=== PATIENT | female | born 1960 | race Two or more races ===

== ENCOUNTER 2017-01-29 11:59 | Inpatient (IN) | payer BC ==
[2017-01-29 13:27] VITALS: BMI 24.4
--- NOTE | 2017-01-29 18:01 | HP ---
Admission [facility] Chief Complaint: SEEKING REHAB SERVICES Allergies/Adverse Reactions: Allergies Allergy/AdvReac Type Severity Reaction Status Date / Time No Known Allergies Allergy Verified 01/29/17 16:42 History of Present Illness: 56 Y.O. WOMAN WITH HISTORY OF CRACK COCAINE DEPENDENCE IS SEEKING REHAB SERVICES. THE REPORTS SHE COMPLETED INPATIENT REHAB AT [facility] IN 2013. Exam Limitations: No Limitations - Ebola screening Have you traveled outside of the country in the last 21 days: No Have you had contact with anyone from an Ebola affected area: No Have you been sick,other than usual withdrawal symptoms: No Do you have a fever: No - Review of Systems Constitutional: Loss of Appetite, Changes in sleep EENT: reports: Tearing, Dental Problems Respiratory: reports: Shortness of Breath Cardiac: reports: Chest Tightness GI: reports: Diarrhea, Poor Appetite : reports: No Symptoms Reported Musculoskeletal: reports: Back Pain, Neck Pain Integumentary: reports: No Symptoms Reported Neuro: reports: Tingling Endocrine: reports: No Symptoms Reported Hematology: reports: Anemia Psychiatric: reports: Mood/Affect Appropiate, Orientated x3, Anxious, Depressed Other Systems: Reviewed and Negative Patient History - Patient Medical History Hx Anemia: Yes Hx Asthma: Yes Hx Chronic Obstructive Pulmonary Disease (COPD): No Hx Cancer: No Hx Cardiac Disorders: No Hx Congestive Heart Failure: No Hx Hypertension: No Hx Hypercholesterolemia: Yes Hx Pacemaker: No HX Cerebrovascular Accident: No Hx Seizures: No Hx Dementia: No Hx Diabetes: No Hx Gastrointestinal Disorders: No Hx Liver Disease: No Hx Genitourinary Disorders: No Hx Sexually Transmitted Disorders: No Hx Renal Disease (ESRD): No Hx Human Immunodeficiency Virus (HIV): Yes Hx Hepatitis C: No Hx Depression: Yes Hx Suicide Attempt: Yes (Suicidal ideation but no plan ) Hx Bipolar Disorder: Yes (No meds ) Hx Schizophrenia: Yes (No meds) Other Medical History: Aneurysm-2007 - Patient Surgical History Past Surgical History: Yes Hx Section: Yes Anesthesia Reaction: No - PPD History Previous Implant?: Yes Documented Results: Negative w/o proof Implanted On Prior [facility] Admission?: No PPD to be Administered?: Yes - Reproductive History Patient is a Female of Child Bearing Age (11 -55 yrs old): No - Smoking Cessation Smoking history: Current every day smoker Have you smoked in the past 12 months: Yes Aproximately how many cigarettes per day: 20 Hx Chewing Tobacco Use: No Initiated information on smoking cessation: Yes 'Breaking Loose' booklet given: 01/29/17 - Substance & Tx. History Hx Alcohol Use: No Hx Substance Use: Yes Substance Use Type: Cocaine Hx Substance Use Treatment: Yes (Rehab-2013) - Substances Abused Crack Route: Smoking Frequency: Daily Amount used: $200 Age of first use: 20 Date of Last Use: 01/28/17 Family Disease History - Family Disease History Family Disease History: Diabetes: Mother ( ), CA: Father ( ) Admission Physical Exam [facility] - Vital Signs Vital Signs: Vital Signs - 24 hr 01/29/17 13:25 Temperature 98.8 F Pulse Rate 61 Respiratory 18 Rate Blood Pressure 99/55 - Physical General Appearance: Yes: Anxious HEENTM: Yes: Normocephalic, Normal Voice, Other (MISSING UPPER/LOWER TEETH) Respiratory: Yes: Chest Non-Tender, Lungs Clear, Normal Breath Sounds, No Respiratory Distress, No Accessory Muscle Use Neck: Yes: No masses,lesions,Nodules, Trachea in good position Breast: Yes: Breast Exam Deferred Cardiology: Yes: Regular Rhythm, Regular Rate Abdominal: Yes: Normal Bowel Sounds, Non Tender, Flat, Soft Genitourinary: Yes: Other (NO COMPLAINTS REPORTED) Back: Yes: Within Normal Limits, Normal Inspection Musculoskeletal: Yes: full range of Motion, Gait Steady Extremities: Yes: Normal Capillary Refill, Normal Inspection, Normal Range of Motion, Non-Tender Neurological: Yes: dough catcher II-XII NML intact, Fully Oriented, Alert, Normal Mood/ Affect, Normal Response Integumentary: Yes: Normal Color, Dry, Warm Lymphatic: Yes: Within Normal Limits - Diagnostic (1) Cocaine dependence, uncomplicated Current Visit: Yes Status: Chronic (2) Nicotine dependence Current Visit: Yes Status: Chronic (3) Asthma Current Visit: Yes Status: Chronic Cleared for Admission [facility] - Detox or Rehab [facility] Level of Care: Observation Bed Claeared for Rehab Admission: Yes [facility] Breath Alcohol Content Breath Alcohol Content: 0 Urine Pregancy Test - Result Urine Test Results: Negative- NO Line Present Urine Drug Screen - Results Drug Screen Negative: No Urine Drug Screen Results: THC-Marijuana, PAO-Cocaine
[2017-01-29] MEDS ORDERED: hydrOXYzine PAMOATE 50 MG CAPSULE (FP) PO PRN (18:21)
[2017-01-29] MEDS ORDERED: NICOTINE POLACRILEX 2 MG GUM BC PRN (18:21)
[2017-01-29] MEDS ORDERED: IBUPROFEN 400 MG TABLET (FP) PO PRN (18:21)
[2017-01-29] MEDS ORDERED: MAGNESIUM CITRATE 300 ML BOTTLE PO PRN (18:21)
[2017-01-29] MEDS ORDERED: MAGNESIUM HYDROX 2400MG/30ML ORAL SUSPENSION 30 ML CUP PO PRN (18:21)
[2017-01-29] MEDS ORDERED: MAG HYDROX/AL HYDROX/SIMETH 30 ML UNIT-DOSE CUP PO PRN (18:21)
[2017-01-29] MEDS ORDERED: ACETAMINOPHEN 325 MG TABLET (FP) PO PRN (18:21)
[2017-01-29] MEDS ORDERED: MENTHOL/PHENOL 1 EACH UD MM PRN (18:21)
[2017-01-29] MEDS ORDERED: LOPERAMIDE HCL 2 MG CAPSULE PO PRN (18:21)
[2017-01-29] MEDS ORDERED: P-EPHED 60MG/TRIPROLIDI 2.5MG TABLET PO PRN (18:21)
[2017-01-29] MEDS ORDERED: guaiFENesin/D-METHORPHAN HB 10 ML UNIT-DOSE CUPS PO PRN (18:21)
[2017-01-29] MEDS ORDERED: ALBUTEROL SO4 2.5/IPRATROPIUM 0.5 INH SOL 3 ML VIAL.NEB. NEB PRN (18:22)
[2017-01-29] MEDS ORDERED: ALBUTEROL SO4 6.7 GM HFA INHALER IH PRN (18:22)
[2017-01-29] MEDS: THIAMINE HCL 100 MG TABLET (FP) PO SCH (21:26)
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
[2017-01-30] MEDS: NICOTINE 21 MG/24 HOURS TOPICAL PATCH TD SCH (09:53)
[2017-01-30] MEDS: PRENATAL VITAMINS W/ FOLIC ACID TABLET (FP) PO SCH (09:53)
[2017-01-30 10:32] LABS: URINE APPEARANCE CLEAR; URINE BILIRUBIN NEGATIVE (NEGATIVE); URINE BLOOD 1+ (NEGATIVE); URINE COLOR LTYELLOW; URINE GLUCOSE (UA) NEGATIVE (NEGATIVE); URINE KETONE NEGATIVE (NEGATIVE); URINE NITRITE NEGATIVE (NEGATIVE); URINE PROTEIN NEGATIVE (NEGATIVE); URINE UROBILINOGEN NEGATIVE mg/dL (0.2-1.0)
[2017-01-30 10:38] LABS: URINE LEUK ESTERASE TRACE (NEGATIVE)
[2017-01-30 10:40] LABS: URINE BACTERIA FEW /hpf (NONE SEEN); URINE MUCUS RARE; URINE RBC 1 /hpf (0-3); URINE WBC 11 /hpf (3-5)
--- NOTE | 2017-01-30 11:13 | EKG ---
Test Reason : Blood Pressure : / mmHG Vent. Rate : 049 BPM Atrial Rate : 049 BPM P-R Int : 124 ms QRS Dur : 090 ms QT Int : 462 ms P-R-T Axes : 065 072 066 degrees QTc Int : 417 ms SINUS BRADYCARDIA OTHERWISE NORMAL ECG NO PREVIOUS ECGS AVAILABLE Confirmed by RYAN DÍAZ, ALE ([id number]) on 01/30/2017 11:12:29 AM Referred By: Confirmed By:ALE DAVIS MD
[2017-01-30 15:21] LABS: MCH 26.8 pg (25.7-33.7); MCHC 33.2 g/dl (32.0-36.0); MEAN CELL VOLUME 80.7 fl (80-96); MEAN PLT VOLUME 10.6 fl (7.5-11.1); PLATELET COUNT 184 K/MM3 (134-434); RDW 14.6 % (11.6-15.6); WHITE BLOOD COUNT 3.6 K/mm3 (4.0-10.0)
[2017-01-30 15:26] LABS: ALBUMIN 2.9 g/dl (3.4-5.0); ALK PHOS 115 U/L (45-117); ANION GAP 7 (8-16); BILIRUBIN,TOTAL 0.2 mg/dL (0.2-1.0); CO2 27 mmol/L (21-32); CREATININE 0.7 mg/dL (0.55-1.02); GLUCOSE,RANDOM 84 mg/dL (74-106); SGOT/AST 17 U/L (15-37); SGPT/ALT 14 U/L (12-78); TOT PROT 7.4 g/dl (6.4-8.2)
[2017-01-30 16:38] LABS: HIV 1 & 2 AB NEGATIVE; HIV 1 AGp24 NEGATIVE
[2017-01-30] MEDS: diphenhydrAMINE HCL 50 MG CAPSULE PO PRN (21:07)
[2017-01-30] MEDS: THIAMINE HCL 100 MG TABLET (FP) PO SCH (21:07)
[2017-01-31] MEDS: PRENATAL VITAMINS W/ FOLIC ACID TABLET (FP) PO SCH (09:52)
[2017-01-31] MEDS: NICOTINE 21 MG/24 HOURS TOPICAL PATCH TD SCH (09:52)
[2017-01-31] MEDS: THIAMINE HCL 100 MG TABLET (FP) PO SCH (21:25)
--- NOTE | 2017-02-01 09:28 | PN ---
Psychiatric Progress Note Vital Signs: Vital Signs Period Temp Pulse Resp BP Sys/Mart Pulse Ox Last 24 Hr 98.3 F 56 16-18 109/65 Date of Session: 02/01/17 Chief Complaint:: Insomnia HPI: Patient addressing Cocaine Dependence comorbid with Nicotine Dependence and Schizoaffective Disorder ROS: Asthma, Anemia and Hyperlipidemia Current Medications: Active Medications Generic Name Dose Route Start Last Admin Trade Name Freq PRN Reason Stop Dose Admin Acetaminophen 650 mg 01/29/17 18:21 Tylenol - PO Q4H PRN PAIN Al Hydroxide/Mg Hydroxide 30 ml 01/29/17 18:21 Mylanta Oral Suspension - PO Q6H PRN DYSPEPSIA Albuterol Sulfate 2 puff 01/29/17 18:22 Ventolin Hfa Inhaler - IH Q4H PRN SHORT OF BREATH/WHEEZING Albuterol/Ipratropium 1 amp 01/29/17 18:22 Duoneb - NEB Q6H PRN SHORTNESS OF BREATH Diphenhydramine HCl 50 mg 01/29/17 18:21 01/30/17 21:07 Benadryl - PO 50 mg HSMR1 PRN Administration INSOMNIA Eucalyptus/Menthol/Phenol/Sorbitol 1 each 01/29/17 18:21 Cepastat Lozenge - MM Q4H PRN SORE THROAT Guaifenesin 10 ml 01/29/17 18:21 Robitussin Dm - PO Q6H PRN COUGH Hydroxyzine Pamoate 50 mg 01/29/17 18:21 Vistaril - PO Q4H PRN AGITATION Ibuprofen 400 mg 01/29/17 18:21 Motrin - PO Q6H PRN SEVERE PAIN Loperamide HCl 4 mg 01/29/17 18:21 Imodium - PO Q6H PRN DIARRHEA Magnesium Citrate 300 ml 01/29/17 18:21 Citroma - PO Q48H PRN CONSTIPATION Magnesium Hydroxide 30 ml 01/29/17 18:21 Milk Of Magnesia - PO DAILY PRN CONSTIPATION Nicotine 21 mg 01/30/17 10:00 01/31/17 09:52 Nicoderm Patch - TD Not Given DAILY TRISTON Nicotine Polacrilex 2 mg 01/29/17 18:21 Nicorette Gum - BC Q2H PRN NICOTINE REPLACEMENT RX Multivit/Folic Acid/Iron 1 tab 01/30/17 10:00 01/31/17 09:52 Vitamins ([facility]) - PO 1 tab DAILY TRISTON Administration Pseudoephedrine/Triprolidine 1 combo 01/29/17 18:21 Actifed - PO TID PRN NASAL CONGESTION Thiamine HCl 100 mg 01/29/17 22:00 01/31/17 21:25 Vitamin B1 - PO Not Given HS TRISTON Medication(s) Change(s): Start Seroquel 100 mg po HS Current Side Effect: No Lab tests ordered: Yes Lab tests reviewed: Yes Provider note:: Patient reports experiencing difficulty to sleep. Told documentation writer that she has been sleeping poorly despite taking Benadryl. Educated about hypnotic as well as antipsychotic effects of Seroquel and she has agreed try it Total face to face time:: 25 Mental Status Exam - Mental Status Exam Alert and Oriented to: Time, Place, Person Cognitive Function: Fair Patient Appearance: Well Groomed Mood: Hopeful, Euthymic Affect: Appropriate Patient Behavior: Cooperative Speech Pattern: Clear Voice Loudness: Normal Thought Process: Intact, Goal Oriented Thought Disorder: Not Present Hallucinations: Denies Suicidal Ideation: Denies Homicidal Ideation: Denies Insight/Judgement: Fair Sleep: Poorly Appetite: Good Muscle strength/Tone: Normal Gait/Station: Normal Psychiatric Treatment Plan - Problem List (1) Cocaine dependence, uncomplicated Current Visit: Yes (2) Nicotine dependence Current Visit: Yes (3) Schizoaffective disorder Current Visit: Yes (4) Asthma Current Visit: Yes (5) Anemia Current Visit: Yes (6) Hyperlipidemia Current Visit: Yes Initial treatment plan: 1) Start Seroquel 100 mg po HS. 2) Monitor progress
[2017-02-01] MEDS: PRENATAL VITAMINS W/ FOLIC ACID TABLET (FP) PO SCH (10:10)
[2017-02-01] MEDS: NICOTINE 21 MG/24 HOURS TOPICAL PATCH TD SCH (10:11)
[2017-02-01] MEDS ORDERED: LIDOCAINE 5% TOPICAL PATCH TP ONE (15:30)
[2017-02-01] MEDS: QUEtiapine FUMARATE 100 MG TABLET (FP) PO SCH (21:28)
[2017-02-01] MEDS: THIAMINE HCL 100 MG TABLET (FP) PO SCH (21:28)
[2017-02-01] MEDS: diphenhydrAMINE HCL 50 MG CAPSULE PO PRN (21:29)
[2017-02-01] MEDS ORDERED: LIDOCAINE PATCH REMOVAL MC ONE (22:00)
[2017-02-01] MEDS: LIDOCAINE PATCH REMOVAL MC SCH (22:03)
[2017-02-02] MEDS: NICOTINE 21 MG/24 HOURS TOPICAL PATCH TD SCH (10:07)
[2017-02-02] MEDS: LIDOCAINE 5% TOPICAL PATCH TP SCH (10:07)
[2017-02-02] MEDS: PRENATAL VITAMINS W/ FOLIC ACID TABLET (FP) PO SCH (10:08)
[2017-02-02] MEDS: QUEtiapine FUMARATE 100 MG TABLET (FP) PO SCH (21:04)
[2017-02-02] MEDS: THIAMINE HCL 100 MG TABLET (FP) PO SCH (21:04)
[2017-02-02] MEDS: diphenhydrAMINE HCL 50 MG CAPSULE PO PRN (21:05)
[2017-02-02] MEDS: LIDOCAINE PATCH REMOVAL MC SCH (22:00)
[2017-02-03] MEDS: NICOTINE 21 MG/24 HOURS TOPICAL PATCH TD SCH (09:43)
[2017-02-03] MEDS: LIDOCAINE 5% TOPICAL PATCH TP SCH (09:44)
[2017-02-03] MEDS: PRENATAL VITAMINS W/ FOLIC ACID TABLET (FP) PO SCH (09:44)
--- NOTE | 2017-02-03 18:51 | PN ---
S Progress Note Note: urine for c/s showed Lactose fermenting gram negative bacilli to start on bactrim ds 1 tab po bid for 7 days,encourage plenty of fluid,water
[2017-02-03] MEDS: QUEtiapine FUMARATE 100 MG TABLET (FP) PO SCH (21:16)
[2017-02-03] MEDS: THIAMINE HCL 100 MG TABLET (FP) PO SCH (21:16)
[2017-02-03] MEDS: diphenhydrAMINE HCL 50 MG CAPSULE PO PRN (21:17)
[2017-02-03] MEDS: LIDOCAINE PATCH REMOVAL MC SCH (21:18)
[2017-02-03] MEDS: SULFAMETHOXAZOLE/TRIMETHOPRIM 800MG/160MG D.S. TABLET PO SCH (21:18)
[2017-02-04] MEDS: PRENATAL VITAMINS W/ FOLIC ACID TABLET (FP) PO SCH (10:10)
[2017-02-04] MEDS: SULFAMETHOXAZOLE/TRIMETHOPRIM 800MG/160MG D.S. TABLET PO SCH ×2 (10:10→21:27)
[2017-02-04] MEDS: NICOTINE 21 MG/24 HOURS TOPICAL PATCH TD SCH (10:11)
[2017-02-04] MEDS: LIDOCAINE 5% TOPICAL PATCH TP SCH (10:12)
[2017-02-04] MEDS: THIAMINE HCL 100 MG TABLET (FP) PO SCH (21:27)
[2017-02-04] MEDS: QUEtiapine FUMARATE 100 MG TABLET (FP) PO SCH (21:27)
[2017-02-04] MEDS: LIDOCAINE PATCH REMOVAL MC SCH (21:28)
[2017-02-05] MEDS: SULFAMETHOXAZOLE/TRIMETHOPRIM 800MG/160MG D.S. TABLET PO SCH ×2 (10:06→21:21)
[2017-02-05] MEDS: PRENATAL VITAMINS W/ FOLIC ACID TABLET (FP) PO SCH (10:06)
[2017-02-05] MEDS: NICOTINE 21 MG/24 HOURS TOPICAL PATCH TD SCH (10:07)
[2017-02-05] MEDS: LIDOCAINE 5% TOPICAL PATCH TP SCH (10:07)
[2017-02-05] MEDS: QUEtiapine FUMARATE 100 MG TABLET (FP) PO SCH (21:21)
[2017-02-05] MEDS: THIAMINE HCL 100 MG TABLET (FP) PO SCH (21:21)
[2017-02-05] MEDS: diphenhydrAMINE HCL 50 MG CAPSULE PO PRN (21:21)
[2017-02-05] MEDS: LIDOCAINE PATCH REMOVAL MC SCH (21:22)
[2017-02-06 06:23] VITALS: BP 99/60; PULSE 60; TEMP 97.5
[2017-02-06] MEDS: SULFAMETHOXAZOLE/TRIMETHOPRIM 800MG/160MG D.S. TABLET PO SCH (09:44)
[2017-02-06] MEDS: NICOTINE 21 MG/24 HOURS TOPICAL PATCH TD SCH (09:44)
[2017-02-06] MEDS: PRENATAL VITAMINS W/ FOLIC ACID TABLET (FP) PO SCH (09:44)
[2017-02-06] MEDS: LIDOCAINE 5% TOPICAL PATCH TP SCH (09:46)
--- NOTE | 2017-02-06 11:25 | PN ---
Psychiatric Progress Note Vital Signs: Vital Signs Period Temp Pulse Resp BP Sys/Mart Pulse Ox Last 24 Hr 97.5 F 60 18 99/60 Date of Session: 02/06/17 Chief Complaint:: Insomnia HPI: Patient addressing Cocaine Dependence comorbid with Nicotine Dependence and Schizoaffective Disorder ROS: Asthma, Anemia and Hyperlipidemia Current Medications: Active Medications Generic Name Dose Route Start Last Admin Trade Name Freq PRN Reason Stop Dose Admin Acetaminophen 650 mg 01/29/17 18:21 Tylenol - PO Q4H PRN PAIN Al Hydroxide/Mg Hydroxide 30 ml 01/29/17 18:21 Mylanta Oral Suspension - PO Q6H PRN DYSPEPSIA Albuterol Sulfate 2 puff 01/29/17 18:22 Ventolin Hfa Inhaler - IH Q4H PRN SHORT OF BREATH/WHEEZING Albuterol/Ipratropium 1 amp 01/29/17 18:22 Duoneb - NEB Q6H PRN SHORTNESS OF BREATH Diphenhydramine HCl 50 mg 01/29/17 18:21 02/05/17 21:21 Benadryl - PO 50 mg HSMR1 PRN Administration INSOMNIA Eucalyptus/Menthol/Phenol/Sorbitol 1 each 01/29/17 18:21 Cepastat Lozenge - MM Q4H PRN SORE THROAT Guaifenesin 10 ml 01/29/17 18:21 Robitussin Dm - PO Q6H PRN COUGH Hydroxyzine Pamoate 50 mg 01/29/17 18:21 Vistaril - PO Q4H PRN AGITATION Ibuprofen 400 mg 01/29/17 18:21 02/01/17 10:12 Motrin - PO 400 mg Q6H PRN Administration SEVERE PAIN Lidocaine 1 patch 02/02/17 10:00 02/06/17 09:46 Lidoderm Patch - TP Not Given DAILY TRISTON Loperamide HCl 4 mg 01/29/17 18:21 Imodium - PO Q6H PRN DIARRHEA Magnesium Citrate 300 ml 01/29/17 18:21 Citroma - PO Q48H PRN CONSTIPATION Magnesium Hydroxide 30 ml 01/29/17 18:21 Milk Of Magnesia - PO DAILY PRN CONSTIPATION Miscellaneous 1 each 02/01/17 22:00 02/05/17 21:22 Lidoderm Patch Removal MC Not Given DAILY@2200 [facility] Nicotine 21 mg 01/30/17 10:00 02/06/17 09:44 Nicoderm Patch - TD 21 mg DAILY TRISTON Administration Nicotine Polacrilex 2 mg 01/29/17 18:21 Nicorette Gum - BC Q2H PRN NICOTINE REPLACEMENT RX Multivit/Folic Acid/Iron 1 tab 01/30/17 10:00 02/06/17 09:44 Vitamins (Sjr) - PO 1 tab DAILY TRISTON Administration Pseudoephedrine/Triprolidine 1 combo 01/29/17 18:21 Actifed - PO TID PRN NASAL CONGESTION Quetiapine Fumarate 100 mg 02/01/17 22:00 02/05/17 21:21 Seroquel - PO 100 mg HS TRISTON Administration Thiamine HCl 100 mg 01/29/17 22:00 02/05/17 21:21 Vitamin B1 - PO 100 mg HS TRISTON Administration Trimethoprim/Sulfamethoxazole 1 each 02/03/17 22:00 02/06/17 09:44 Bactrim Ds - PO 02/11/17 23:55 1 each BID TRISTON Administration Medication(s) Change(s): Increase Seroquel to 200 mg po HS Current Side Effect: No Lab tests ordered: Yes Lab tests reviewed: Yes Provider note:: Patient continue to report expriencing difficulty to sleep. Told fiction and nonfiction writer prose that she has been sleeping poorly despite taking Seroquel 100 mg along with Benadryl. She agreed to increase Seroquel to 200 mg to avoid polypharmacy by introducing another medication to her regimen. She was also educated about sleeping hygiene Mental Status Exam - Mental Status Exam Alert and Oriented to: Time, Place, Person Cognitive Function: Fair Patient Appearance: Well Groomed Mood: Hopeful, Euthymic Affect: Appropriate Patient Behavior: Cooperative Speech Pattern: Clear Voice Loudness: Normal Thought Process: Intact Thought Disorder: Not Present Hallucinations: Denies Suicidal Ideation: Denies Homicidal Ideation: Denies Insight/Judgement: Fair Sleep: Poorly Appetite: Good Muscle strength/Tone: Normal Gait/Station: Normal Psychiatric Treatment Plan - Problem List (1) Cocaine dependence, uncomplicated Current Visit: Yes (2) Nicotine dependence Current Visit: Yes (3) Schizoaffective disorder Current Visit: Yes (4) Asthma Current Visit: Yes (5) Anemia Current Visit: Yes (6) Hyperlipidemia Current Visit: Yes Initial treatment plan: 1) Discontinue Seroquel 100 mg po HS. 2) Start Seroquel 200 mg o HS. 3) Monitor progress
[2017-02-06] MEDS ORDERED: IBUPROFEN 400 MG TABLET (FP) PO PRN (14:19)
--- NOTE | 2017-02-06 19:20 | PN ---
S Progress Note Note: patient did not want to complete treatment,signed release ama,did not want to wait,psychiatrist extrusion machine operator notified by nurse nursing supervisor grower notified
[2017-02-06] MEDS ORDERED: QUEtiapine FUMARATE 200 MG TABLET PO SCH (22:00)
== END 2017-02-06 20:02 | disposition left against medical advice (07) | DRG 770 ==
LOC: YASAS 11:59 → Y3E 17:45
PROVIDERS: ADMIT Psychiatry & Neurology Psychiatry; ATTEND Psychiatry & Neurology Psychiatry
PROC: HZ42ZZZ Group Counseling for Substance Abuse Treatment, Cognitive-Behavioral (ICD-10-PCS; principal; 2017-01-29)
DX: F14.20 Cocaine dependence, uncomplicated (principal); F17.210 Nicotine dependence, cigarettes, uncomplicated; F25.9 Schizoaffective disorder, unspecified; J45.909 Unspecified asthma, uncomplicated; D64.9 Anemia, unspecified; E78.5 Hyperlipidemia, unspecified; N39.0 Urinary tract infection, site not specified; B96.89 Other specified bacterial agents as the cause of diseases classified elsewhere; Z91.5 Personal history of self-harm; Z86.79 Personal history of other diseases of the circulatory system
CPT/HCPCS: 36415; 80053; 81003; 81015; 85027; 86593; 87086; 87186; 87389; 93005; 93010

== ENCOUNTER 2018-12-28 11:02 | Inpatient (IN) | payer OTHER ==
[2018-12-28 11:19] VITALS: BMI 23.4
--- NOTE | 2018-12-28 11:44 | HP ---
CIWA Score Nausea/Vomitin-No Nausea/No Vomiting Muscle Tremors: None Anxiety: 4-Mod. Anxious/Guarded Agitation: 0-Normal Activity Paroxysmal Sweats: No Perspiration Orientation: 0-Oriented Tacttile Disturbances: 0-None Auditory Disturbances: 2-Mild Harshness/Frighten Visual Disturbances: 3-Moderate Sensitivity Headache: 3-Moderate CIWA-Ar Total Score: 12 - Admission Criteria OASAS Guidelines: Admission for Medically Managed Detox: Requires at least one of the followin. CIWA greater than 12 2. Seizures within the past 24 hours 3. Delirium tremens within the past 24 hours 4. Hallucinations within the past 24 hours 5. Acute intervention needed for co occurring medical disorder 6. Acute intervention needed for co occurring psychiatric disorder 7. Severe withdrawal that cannot be handled at a lower level of care (continued vomiting, continued diarrhea, abnormal vital signs) requiring intravenous medication and/or fluids 8. Admission ROS S - HPI Allergies/Adverse Reactions: Allergies Allergy/AdvReac Type Severity Reaction Status Date / Time No Known Allergies Allergy Verified 12/28/18 11:15 History of Present Illness: pt here requesting detox from etoh use , reports 5 nips/day , current symptoms as above, denies seizures, blackouts , reports tremors if not drinking , reports use x 8 years , tried to stop on her own unsuccssfully , latest use this morning . cocaine : 40 $ /day denies ivdu tobacco : 1/ ppd heroin : 30-40 $/day , latest use 2 weeks ago denies other illicits PMHX : brain aneurysm , s/p surgery x once 4 years ago ,asthma , anxiety PSHx : as above Exam Limitations: Clinical Condition, Intoxication - Ebola screening Have you traveled outside of the country in the last 21 days: No (N) Have you had contact with anyone from an Ebola affected area: No Do you have a fever: No - Review of Systems Constitutional: See HPI, Loss of Appetite EENT: reports: See HPI Respiratory: reports: See HPI, Cough Cardiac: reports: No Symptoms Reported GI: reports: Poor Appetite : reports: No Symptoms Reported Musculoskeletal: reports: No Symptoms Reported Integumentary: reports: No Symptoms Reported Neuro: reports: See HPI Endocrine: reports: No Symptoms Reported Psychiatric: reports: Orientated x3 Patient History - Patient Medical History Hx Anemia: Yes Hx Asthma: Yes (ON ALBUTEROL) Hx Chronic Obstructive Pulmonary Disease (COPD): No Hx Cancer: No Hx Cardiac Disorders: No Hx Congestive Heart Failure: No Hx Hypertension: No Hx Hypercholesterolemia: Yes Hx Pacemaker: No HX Cerebrovascular Accident: No Hx Seizures: No Hx Dementia: No Hx Diabetes: No Hx Gastrointestinal Disorders: No Hx Liver Disease: No Hx Genitourinary Disorders: No Hx Sexually Transmitted Disorders: No Hx Renal Disease (ESRD): No Hx Human Immunodeficiency Virus (HIV): Yes Hx Hepatitis C: No Hx Depression: Yes Hx Suicide Attempt: Yes (X1 CUTTING WRIST) Hx Bipolar Disorder: Yes (No meds ) Hx Schizophrenia: Yes - Patient Surgical History Past Surgical History: Yes Hx Section: Yes Anesthesia Reaction: No - PPD History Date: 01/31/17 - Smoking Cessation Smoking history: Current every day smoker Have you smoked in the past 12 months: Yes Aproximately how many cigarettes per day: 20 Hx Chewing Tobacco Use: No Initiated information on smoking cessation: No - Substances abused Heroin Substance route: Inhalation Frequency: 3-6 times per week Amount used: $100- 10BAGS Age of first use: 14 Date of last use: 12/27/18 Crack Substance route: Smoking Frequency: Daily Amount used: $400 Age of first use: 14 Date of last use: 12/27/18 Alcohol Substance route: Oral Frequency: Daily Amount used: BEER- 6PK- 24OZ/ VODKA- 4NIBS Age of first use: 16 Date of last use: 12/28/18 Marijuana/Hashish Substance route: Smoking Frequency: Daily Amount used: $50 Age of first use: 14 Date of last use: 12/26/18 Family Disease History - Family Disease History Family Disease History: Diabetes: Mother ( ), CA: Father ( ) Admission Physical Exam [facility] - Vital Signs Vital Signs: Vital Signs - 24 hr 12/28/18 11:08 Temperature 97.3 F L Pulse Rate 64 Respiratory 18 Rate Blood Pressure 132/69 - Physical General Appearance: Yes: Mild Distress, Intoxicated HEENTM: Yes: Hearing grossly Normal, Normocephalic, Normal Voice, Other ( edentulous) Respiratory: Yes: Chest Non-Tender, Lungs Clear, Normal Breath Sounds Neck: Yes: No masses,lesions,Nodules, Trachea in good position Cardiology: Yes: Regular Rhythm, Regular Rate, S1, S2 Abdominal: Yes: Non Tender, Soft Back: Yes: Normal Inspection Extremities: Yes: Non-Tender Neurological: Yes: Fully Oriented, Alert Integumentary: Yes: Warm - Diagnostic (1) Alcohol intoxication Current Visit: Yes Status: Acute Qualifiers: Complication of substance-induced condition: uncomplicated Qualified Code(s ): F10.920 - Alcohol use, unspecified with intoxication, uncomplicated (2) Cocaine dependence, uncomplicated Current Visit: Yes Status: Chronic (3) Nicotine dependence Current Visit: Yes Status: Chronic Qualifiers: Nicotine product type: cigarettes Inpatient Rehab Admission - Rehab Decision to Admit Inpatient rehab admission?: No
[2018-12-28] MEDS ORDERED: BISMUTH SUBSALICYLATE 524 MG/30 ML UD PO PRN (11:57)
[2018-12-28] MEDS ORDERED: NICOTINE POLACRILEX 2 MG GUM BUC PRN (11:57)
[2018-12-28] MEDS ORDERED: hydrOXYzine PAMOATE 25 MG CAPSULE (FP) PO PRN (11:57)
[2018-12-28] MEDS ORDERED: IBUPROFEN 400 MG TABLET (FP) PO PRN (11:57)
[2018-12-28] MEDS ORDERED: MAG HYDROX/AL HYDROX/SIMETH 30 ML UNIT-DOSE CUP PO PRN (11:57)
[2018-12-28] MEDS ORDERED: MAGNESIUM HYDROX 2400MG/30ML ORAL SUSPENSION 30 ML CUP PO PRN (11:57)
[2018-12-28] MEDS ORDERED: MAGNESIUM CITRATE 300 ML BOTTLE PO PRN (11:57)
[2018-12-28] MEDS ORDERED: MENTHOL/PHENOL 1 EACH UD MM PRN (11:57)
[2018-12-28] MEDS ORDERED: ACETAMINOPHEN 325 MG TABLET (FP) PO PRN ×2 (11:57)
[2018-12-28] MEDS ORDERED: ALBUTEROL SO4 8 GM HFA INHALER IH SCH (12:00)
[2018-12-28] MEDS ORDERED: ALBUTEROL SO4 8 GM HFA INHALER IH PRN (12:37)
[2018-12-28] MEDS: BUDESONIDE/FORMETEROL FUMARATE 80/4.5 mcg INHALER IH SCH ×2 (12:43→22:18)
[2018-12-28] MEDS: diazePAM 5 MG TABLET PO SCH ×2 (13:21→22:18)
[2018-12-28] MEDS: THIAMINE HCL 100 MG TABLET (FP) PO SCH (22:18)
[2018-12-28] MEDS: MELATONIN 5 MG TABLETS PO PRN (22:19)
[2018-12-29] MEDS: diazePAM 5 MG TABLET PO SCH ×3 (06:39→22:06)
[2018-12-29] MEDS ORDERED: PRENATAL VITAMINS W/ FOLIC ACID TABLET (FP) PO SCH (10:00)
[2018-12-29] MEDS: BUDESONIDE/FORMETEROL FUMARATE 80/4.5 mcg INHALER IH SCH ×2 (10:05→22:06)
[2018-12-29 10:26] LABS: ALBUMIN 2.7 g/dl (3.4-5.0); BILIRUBIN,TOTAL 0.2 mg/dL (0.2-1); CREATININE 0.8 mg/dL (0.55-1.3); POTASSIUM 3.4 mmol/L (3.5-5.1)
[2018-12-29 10:33] LABS: HEMOGLOBIN 12.1 GM/dL (10.7-15.3); MCH 26.1 pg (25.7-33.7); MCHC 32.7 g/dl (32.0-36.0); MEAN CELL VOLUME 79.6 fl (80-96); MEAN PLT VOLUME 10.2 fl (7.5-11.1); PLATELET COUNT 172 K/MM3 (134-434); RBC 4.65 M/mm3 (3.60-5.2); RDW 16.2 % (11.6-15.6); WHITE BLOOD COUNT 3.8 K/mm3 (4.0-10.0)
--- NOTE | 2018-12-29 13:44 | PN ---
[facility] CIWA - CIWA Score Nausea/Vomitin-No Nausea/No Vomiting Muscle Tremors: 3 Anxiety: 2 Agitation: 2 Paroxysmal Sweats: 2 Orientation: 0-Oriented Tacttile Disturbances: 0-None Auditory Disturbances: 0-None Visual Disturbances: 0-None Headache: 0-None Present CIWA-Ar Total Score: 9 S Progress Note (SOAP) Subjective: sweats body aches Objective: 12/29/18 13:43 Vital Signs Temperature 99.9 F H 12/29/18 13:14 Pulse Rate 64 12/29/18 13:14 Respiratory Rate 16 12/29/18 13:14 Blood Pressure 140/80 12/29/18 13:14 O2 Sat by Pulse Oximetry (%) Laboratory Tests 12/29/18 12/29/18 12/29/18 07:30 07:30 07:30 WBC 3.8 L RBC 4.65 Hgb 12.1 Hct 37.0 MCV 79.6 L MCH 26.1 MCHC 32.7 RDW 16.2 H Plt Count 172 MPV 10.2 Sodium 141 Potassium 3.4 L Chloride 109 H Carbon Dioxide 28 Anion Gap 4 L BUN 12.0 Creatinine 0.8 Est GFR (CKD-EPI)AfAm 92.87 Est GFR (CKD-EPI)NonAf 80.13 Random Glucose 104 Calcium 8.0 L Total Bilirubin 0.2 AST 17 ALT 16 Alkaline Phosphatase 124 H Total Protein 7.0 Albumin 2.7 L RPR Titer Nonreactive HIV 1&2 Antibody Screen HIV P24 Antigen 12/29/18 07:30 WBC RBC Hgb Hct MCV MCH MCHC RDW Plt Count MPV Sodium Potassium Chloride Carbon Dioxide Anion Gap BUN Creatinine Est GFR (CKD-EPI)AfAm Est GFR (CKD-EPI)NonAf Random Glucose Calcium Total Bilirubin AST ALT Alkaline Phosphatase Total Protein Albumin RPR Titer HIV 1&2 Antibody Screen Negative HIV P24 Antigen Negative labs noted hypokalemia 3.4; will replenish aaox3 ambulating no acute distress Assessment: 12/29/18 13:43 mild withdrawal sx Plan: continue detox increase fluids kdur 20meq bid x 2 days d/c in am
[2018-12-29] MEDS: POTASSIUM CHLORIDE TABS 20 MEQ TABLET.ER (FP) PO SCH ×2 (14:14→22:06)
[2018-12-29] MEDS ORDERED: guaiFENesin 200 MG/10 ML 10 ML UNIT-DOSE CUPS PO PRN (14:31)
--- NOTE | 2018-12-29 14:31 | PN ---
S Progress Note Note: pt was c/o of chest pain. EKG ordered; result came back normal no blockage noted. No s/s of cardiac issue/ OH. Pt states her chest hurts alot because she has been coughing. Encouraged pt to ask for motrin prn robitussin prn
[2018-12-29] MEDS: THIAMINE HCL 100 MG TABLET (FP) PO SCH (22:06)
[2018-12-29] MEDS: MELATONIN 5 MG TABLETS PO PRN (22:07)
[2018-12-30] MEDS ORDERED: diazePAM 5 MG TABLET PO ONE (06:00)
--- NOTE | 2018-12-30 09:22 | DS ---
[facility] Detox Discharge Summary Admission Date: 12/28/18 Discharge Date: 12/30/18 - History Present History: Alcohol Dependence, Cocaine Dependence - Physical Exam Results Vital Signs: Vital Signs Temperature 97.7 F 12/30/18 08:16 Pulse Rate 65 12/30/18 08:16 Respiratory Rate 16 12/30/18 08:16 Blood Pressure 124/60 12/30/18 08:16 O2 Sat by Pulse Oximetry (%) - Treatment Hospital Course: Detox Protocol Followed, Detoxed Safely, Responded well, Discharged Condition Good, Rehab Referral Accepted - Medication Discharge Medications: Ambulatory Orders Albuterol Sulfate Inhaler - [Ventolin Hfa Inhaler -] 1 - 2 inh PO Q4H 12/28/18 Budesonide/Formeterol Fumarate [SYMBICORT 80/4.5mcg -] 1 inh PO BID 12/28/18 - Diagnosis (1) Cocaine dependence, uncomplicated Current Visit: Yes Status: Chronic (2) Nicotine dependence Current Visit: Yes Status: Chronic Qualifiers: Nicotine product type: cigarettes Substance use status: uncomplicated Qualified Code(s): F17.210 - Nicotine dependence, cigarettes, uncomplicated (3) Anemia Current Visit: No Status: Acute (4) Hyperlipidemia Current Visit: No Status: Acute (5) Schizoaffective disorder Current Visit: No Status: Acute (6) UTI (urinary tract infection) Current Visit: No Status: Acute (7) Asthma Current Visit: No Status: Chronic - AMA Did Patient Leave Against Medical Advice: No (pt referred to [facility])
[2018-12-30 09:57] VITALS: BP 115/83; PULSE 75; TEMP 98
--- NOTE | 2018-12-30 12:22 | EKG ---
Test Reason : Blood Pressure : / mmHG Vent. Rate : 054 BPM Atrial Rate : 054 BPM P-R Int : 112 ms QRS Dur : 096 ms QT Int : 438 ms P-R-T Axes : 069 069 070 degrees QTc Int : 415 ms SINUS BRADYCARDIA OTHERWISE NORMAL ECG Confirmed by MD ZENA, FRANKLIN ([id number]) on 12/30/2018 12:22:24 PM Referred By: Confirmed By:FRANKLIN FREITAS MD
== END 2018-12-30 09:55 | disposition home or self-care (01) | DRG 774 ==
LOC: YASAS 11:02 → Y6N 12:03
PROVIDERS: ADMIT Surgery; ATTEND Surgery
PROC: HZ2ZZZZ Detoxification Services for Substance Abuse Treatment (ICD-10-PCS; principal; 2018-12-28)
DX: F10.230 Alcohol dependence with withdrawal, uncomplicated (principal); F14.20 Cocaine dependence, uncomplicated; F17.210 Nicotine dependence, cigarettes, uncomplicated; F25.9 Schizoaffective disorder, unspecified; F31.9 Bipolar disorder, unspecified; E87.6 Hypokalemia; J45.909 Unspecified asthma, uncomplicated; D64.9 Anemia, unspecified; N39.0 Urinary tract infection, site not specified; R07.9 Chest pain, unspecified; Z91.5 Personal history of self-harm
CPT/HCPCS: 36415; 80053; 85027; 86593; 87389; 93005; 93010